=== PATIENT | male | born 1995 | race Hispanic/Latino ===

== ENCOUNTER 2017-08-09 19:55 | Emergency (ER) | payer SELFPAY ==
[2017-08-09] MEDS ORDERED: Lidocaine 2% PF 5 ML VIAL ONE (20:08)
[2017-08-09] MEDS ORDERED: cefTRIAXone\\ROCEPHIN 250 MG VIAL ONE (20:08)
[2017-08-09] MEDS ORDERED: Azithromycin 250 MG TAB ONE (20:08)
[2017-08-09] MEDS ORDERED: hydrOXYzine 25 MG TAB ONE (20:16)
== END 2017-08-09 20:52 | disposition home or self-care (01) ==
LOC: ERS 19:55
DX: A64 Unspecified sexually transmitted disease (principal); F41.9 Anxiety disorder, unspecified; F32.9 Major depressive disorder, single episode, unspecified; F17.210 Nicotine dependence, cigarettes, uncomplicated
CPT/HCPCS: 96372; J0696; J2001

== ENCOUNTER 2018-01-16 18:21 | Emergency (ER) | payer SELFPAY ==
[2018-01-16] MEDS ORDERED: Ketorolac Tromethamine 30 MG/ML VIAL ONE (19:07)
--- NOTE | 2018-01-16 19:20 | RAD ---
LEFT FOOT THREE VIEWS: 01/16/18 HISTORY: Left foot pain after dropping weight on the foot yesterday. COMPARISON: 10/03/14. FINDINGS: Joint spaces are preserved. Lisfranc alignment is maintained. No fracture. Mild soft tissue swelling. IMPRESSION: 1. No fracture. 2. Mild soft tissue swelling. POS: [facility]
[2018-01-16] MEDS ORDERED: Lorazepam 1 MG TAB ONE (19:50)
== END 2018-01-16 19:53 | disposition home or self-care (01) ==
LOC: ERS 18:21
DX: S90.32XA Contusion of left foot, initial encounter (principal); F41.9 Anxiety disorder, unspecified; F32.9 Major depressive disorder, single episode, unspecified; F17.210 Nicotine dependence, cigarettes, uncomplicated; Z79.899 Other long term (current) drug therapy; W20.8XXA Other cause of strike by thrown, projected or falling object, initial encounter
CPT/HCPCS: 96372; J1885

== ENCOUNTER 2018-01-21 14:33 | Emergency (ER) | payer SELFPAY ==
[2018-01-21] MEDS ORDERED: Ketorolac Tromethamine 60 MG/2 ML VIAL ONE (18:12)
--- NOTE | 2018-01-21 18:22 | RAD ---
LEFT FOOT THREE VIEWS: INDICATIONS: Left foot injury. COMPARISON: Prior exam dated 01/16/2018. IMPRESSION: No acute fracture or subluxation is evident. Lisfranc alignment is preserved. No radiopaque foreign body is demonstrated. Examination does not appear appreciably changed from the comparison study. POS: [facility]
== END 2018-01-21 18:17 | disposition home or self-care (01) ==
LOC: ERS 14:33
DX: S90.32XA Contusion of left foot, initial encounter (principal); F41.9 Anxiety disorder, unspecified; F32.9 Major depressive disorder, single episode, unspecified; F17.210 Nicotine dependence, cigarettes, uncomplicated; W20.8XXA Other cause of strike by thrown, projected or falling object, initial encounter
CPT/HCPCS: 96372; J1885

== ENCOUNTER 2018-01-23 14:05 | Emergency (ER) | payer SELFPAY ==
[2018-01-23 14:54] LABS: Bilirubin Negative (Negative); Blood, Urine Negative (Negative); Clarity CLEAR (Clear); Glucose, Urine (Dipstick) Negative (Negative); Leukocyte Negative (Negative); Nitrite Negative (Negative); Protein, Urine (Dipstick) Negative (Neg-Trace); Specific Gravity, Urine 1.029 (1.002-1.036); pH, Urine 5.5 (5.0-9.0)
[2018-01-23 15:00] LABS: #Basophils 0.1 thou/uL (0.0-0.2); #Eosinphils 0.1 thou/uL (0.0-0.7); #Lymphocytes 1.6 thou/uL (1.20-3.40); #Monocytes 0.5 thou/uL (0.11-0.59); #Neutrophils 5.3 thou/uL (1.40-6.50); %Basophils 0.7 % (0.0-1.0); %Monocytes 6.4 % (0.0-10.0); %Neutrophils 70.8 % (42.0-75.0); Hemoglobin 16.4 g/dL (14.0-18.0); Mean Corpuscular HGB CONC 32.8 g/dL (32.0-36.0); Mean Corpuscular Hemoglobin 30.3 pg (27.0-31.0); Mean Corpuscular Volume 92.2 fL (78.0-98.0); Mean Platelet Volume 10.3 fL (7.4-10.4); Platelet Count 180 thou/uL (130-400); RBC Distribution Width 12.9 % (11.5-14.5); Red Blood Cell (RBC) Count 5.43 mill/uL (4.70-6.10); White Blood Cell (WBC) Count 7.5 thou/uL (4.8-10.8)
[2018-01-23 15:08] LABS: Amphetamine Not Detected (NotDetected); Benzodiazepine Screen Detected (NotDetected); Cocaine Metabolite Screen Not Detected (NotDetected); Medtox Reader # READER 1; Methamphetamine Not Detected (NotDetected); Opiate Screen Not Detected (NotDetected); Phencyclidine (PCP) Not Detected (NotDetected); THC/Cannabinoid Screen Detected (NotDetected)
[2018-01-23 15:09] LABS: Barbiturates Screen Not Detected (NotDetected); Medtox Control Line Valid? VALID (VALID); Methadone Not Detected (NotDetected); Oxycodone Screen Not Detected (NotDetected); Tricyclic Screen Not Detected (NotDetected)
[2018-01-23 15:19] LABS: ALT (SGPT) 18 U/L (8-55); AST (SGOT) 35 U/L (5-34); Acetaminophen Less than 6.0 mcg/mL (10.0-30.0); Albumin 4.8 g/dL (3.5-5.0); Alcohol Less than 10 mg/dL (Less than 10); Alkaline Phosphatase 72 U/L (40-150); Anion Gap 13 mmol/L (10-20); BUN (Urea Nitrogen) 15 mg/dL (8.9-20.6); Bilirubin, Total 0.6 mg/dL (0.2-1.2); Calc. Creatinine Clearance 0 mL/min (70-130); Calcium 9.7 mg/dL (7.8-10.44); Carbon Dioxide 26 mmol/L (22-29); Chloride 107 mmol/L (98-107); Estimated GFR-MDRD Greater than 90; Globulin 3.2 g/dL (2.4-3.5); Glucose 94 mg/dL (70-105); Potassium 4.4 mmol/L (3.5-5.1); Salicylate Less than 8.0 mg/dL (15.0-30.0); Sodium 142 mmol/L (136-145)
[2018-01-23] MEDS ORDERED: Ondansetron ODT 8 MG TAB ONE (16:49)
[2018-01-23] MEDS ORDERED: Acetaminophen 500 MG TAB ONE (16:49)
== END 2018-01-23 16:55 | disposition home or self-care (01) ==
LOC: ERS 14:05
DX: G89.29 Other chronic pain (principal); M79.672 Pain in left foot; F41.9 Anxiety disorder, unspecified; F32.9 Major depressive disorder, single episode, unspecified; R11.10 Vomiting, unspecified; F17.210 Nicotine dependence, cigarettes, uncomplicated
CPT/HCPCS: 36415; 80053; 80306; 80307; 81003; 84443; 85025; 99283

== ENCOUNTER 2018-04-11 09:54 | Emergency (ER) | payer SELFPAY ==
[2018-04-11] MEDS ORDERED: Lidocaine 1% PF 5 ML VIAL ONE (10:46)
[2018-04-11] MEDS ORDERED: cefTRIAXone\\ROCEPHIN 250 MG VIAL ONE (10:46)
[2018-04-11] MEDS ORDERED: Azithromycin 250 MG TAB ONE (11:45)
[2018-04-14 20:34] LABS: Chlamydia by PCR DETECTED (NotDetected); GC by PCR DETECTED (NotDetected)
== END 2018-04-11 11:07 | disposition home or self-care (01) ==
LOC: ERS 09:54
DX: N34.2 Other urethritis (principal); F41.9 Anxiety disorder, unspecified; F32.9 Major depressive disorder, single episode, unspecified; F17.210 Nicotine dependence, cigarettes, uncomplicated
CPT/HCPCS: 87491; 87591; 96372; J0696; J2001

== ENCOUNTER 2018-05-24 08:10 | Emergency (ER) | payer SELFPAY ==
[2018-05-24 08:49] LABS: Bilirubin Negative (Negative); Blood, Urine Negative (Negative); Clarity CLOUDY (Clear); Glucose, Urine (Dipstick) Negative (Negative); Leukocyte Moderate (Negative); Nitrite Negative (Negative); Protein, Urine (Dipstick) Negative (Neg-Trace); Specific Gravity, Urine 1.016 (1.002-1.036)
[2018-05-24 08:50] LABS: Bacteria/HPF None Seen HPF (None Seen); Hyaline Casts/LPF 0-3 HYALINE CAST LPF (0-3 Hyaline); Pathc Cast-AUWi Flag 0.27 (0-2.49); RBC/HPF 0-3 HPF (0-3); Squamous Epithelial 0-3 HPF (0-3); WBC/HPF 21-50 HPF (0-3)
[2018-05-24] MEDS ORDERED: Ketorolac Tromethamine 60 MG/2 ML VIAL ONE (09:23)
[2018-05-24] MEDS ORDERED: Lidocaine 1% PF 5 ML VIAL ONE (09:24)
[2018-05-24] MEDS ORDERED: cefTRIAXone\\ROCEPHIN 250 MG VIAL ONE (09:24)
[2018-05-24] MEDS ORDERED: Azithromycin 250 MG TAB ONE (09:26)
[2018-05-26 20:25] LABS: Chlamydia by PCR Not Detected (NotDetected); GC by PCR DETECTED (NotDetected)
== END 2018-05-24 09:47 | disposition home or self-care (01) ==
LOC: ERS 08:10
DX: Z11.3 Encounter for screening for infections with a predominantly sexual mode of transmission (principal); J20.9 Acute bronchitis, unspecified; F41.9 Anxiety disorder, unspecified; F32.9 Major depressive disorder, single episode, unspecified; F17.210 Nicotine dependence, cigarettes, uncomplicated; Z71.6 Tobacco abuse counseling
CPT/HCPCS: 81003; 81015; 87491; 87591; 96372; 99406; J0696; J1885; J2001

== ENCOUNTER 2018-05-31 16:55 | Emergency (ER) | payer SELFPAY | END 2018-05-31 18:06 | disposition home or self-care (01) | LOC: ERS 16:55 | DX: J06.9 Acute upper respiratory infection, unspecified (principal); N50.9 Disorder of male genital organs, unspecified; F41.9 Anxiety disorder, unspecified; F32.9 Major depressive disorder, single episode, unspecified; F17.210 Nicotine dependence, cigarettes, uncomplicated | CPT/HCPCS: 99283 ==

== ENCOUNTER 2018-08-24 21:10 | Emergency (ER) | payer SELFPAY ==
[2018-08-24 21:47] LABS: Bilirubin Negative (Negative); Blood, Urine Negative (Negative); Clarity CLOUDY (Clear); Glucose, Urine (Dipstick) Negative (Negative); Leukocyte Small (Negative); Nitrite Negative (Negative); Protein, Urine (Dipstick) Negative (Neg-Trace); Specific Gravity, Urine 1.029 (1.002-1.036); Urobilinogen 0.2 mg/dL (0.2-1.0)
[2018-08-24 21:53] LABS: Bacteria/HPF None Seen HPF (None Seen); Pathc Cast-AUWi Flag 0.27 (0-2.49); RBC/HPF 0-3 HPF (0-3); Squamous Epithelial 0-3 HPF (0-3)
[2018-08-24 22:03] LABS: Hyaline Casts/LPF 0-3 HYALINE CAST LPF (0-3 Hyaline)
[2018-08-24] MEDS ORDERED: Lidocaine 1% PF 5 ML VIAL ONE (22:27)
[2018-08-24] MEDS ORDERED: Azithromycin 250 MG TAB ONE (22:27)
[2018-08-24] MEDS ORDERED: cefTRIAXone\\ROCEPHIN 250 MG VIAL ONE (22:27)
[2018-08-28 00:02] LABS: Chlam.trachomatis by PCR,Urine Not Detected (NotDetected)
== END 2018-08-24 22:45 | disposition home or self-care (01) ==
LOC: ERS 21:10
DX: N34.2 Other urethritis (principal); R11.0 Nausea; F32.9 Major depressive disorder, single episode, unspecified; F41.9 Anxiety disorder, unspecified; F17.210 Nicotine dependence, cigarettes, uncomplicated
CPT/HCPCS: 81003; 81015; 87086; 87491; 87591; 96372; J0696; J2001

== ENCOUNTER 2018-09-16 08:27 | Emergency (ER) | payer SELFPAY ==
[2018-09-16 09:06] LABS: #Eosinphils 0.1 thou/uL (0.0-0.7); #Lymphocytes 2.2 thou/uL (1.20-3.40); #Monocytes 0.5 thou/uL (0.11-0.59); #Neutrophils 3.6 thou/uL (1.40-6.50); %Basophils 0.6 % (0.0-1.0); %Eosinophils 1.1 % (0.0-10.0); %Lymphocytes 34.4 % (21.0-51.0); %Monocytes 7.8 % (0.0-10.0); %Neutrophils 56.2 % (42.0-75.0); Hemoglobin 15.3 g/dL (14.0-18.0); Mean Corpuscular HGB CONC 32.7 g/dL (32.0-36.0); Mean Corpuscular Hemoglobin 30.4 pg (27.0-31.0); Mean Platelet Volume 10.1 fL (7.4-10.4); Platelet Count 136 thou/uL (130-400); RBC Distribution Width 12.9 % (11.5-14.5); Red Blood Cell (RBC) Count 5.02 mill/uL (4.70-6.10); White Blood Cell (WBC) Count 6.4 thou/uL (4.8-10.8)
[2018-09-16 09:19] LABS: ALT (SGPT) 11 U/L (8-55); AST (SGOT) 11 U/L (5-34); Albumin 4.2 g/dL (3.5-5.0); Alkaline Phosphatase 56 U/L (40-150); Anion Gap 11 mmol/L (10-20); BUN (Urea Nitrogen) 14 mg/dL (8.9-20.6); Bilirubin, Total 0.3 mg/dL (0.2-1.2); Calc. Creatinine Clearance 0 mL/min (70-130); Calcium 8.8 mg/dL (7.8-10.44); Carbon Dioxide 25 mmol/L (22-29); Chloride 107 mmol/L (98-107); Estimated GFR-MDRD Greater than 90; Globulin 2.7 g/dL (2.4-3.5); Glucose 89 mg/dL (70-105); Protein, Total 6.9 g/dL (6.0-8.3); Sodium 139 mmol/L (136-145)
[2018-09-16] MEDS ORDERED: Ondansetron ODT 4 MG TAB ONE (09:39)
[2018-09-16] MEDS ORDERED: Acetaminophen 500 MG TAB ONE (10:32)
[2018-09-16] MEDS ORDERED: Ketorolac Tromethamine 60 MG/2 ML VIAL ONE (10:32)
== END 2018-09-16 10:55 | disposition home or self-care (01) ==
LOC: ERS 08:27
DX: K08.89 Other specified disorders of teeth and supporting structures (principal); R11.2 Nausea with vomiting, unspecified; M79.671 Pain in right foot; F41.9 Anxiety disorder, unspecified; F32.9 Major depressive disorder, single episode, unspecified; F17.210 Nicotine dependence, cigarettes, uncomplicated
CPT/HCPCS: 36415; 80053; 85025; 96372; J1885; Q0162

== ENCOUNTER 2019-04-09 12:51 | Emergency (ER) | payer SELFPAY ==
[2019-04-09] MEDS ORDERED: Ketorolac Tromethamine 30 MG/ML VIAL ONE (14:05)
[2019-04-09 14:14] LABS: #Basophils 0.1 thou/uL (0.0-0.2); #Eosinphils 0.1 thou/uL (0.0-0.7); #Lymphocytes 2.1 thou/uL (1.20-3.40); #Monocytes 0.3 thou/uL (0.11-0.59); #Neutrophils 2.9 thou/uL (1.40-6.50); %Basophils 1.1 % (0.0-1.0); %Lymphocytes 38.2 % (21.0-51.0); %Monocytes 6.1 % (0.0-10.0); %Neutrophils 52.6 % (42.0-75.0); Hemoglobin 16.2 g/dL (14.0-18.0); Mean Corpuscular HGB CONC 33.7 g/dL (32.0-36.0); Mean Corpuscular Hemoglobin 30.8 pg (27.0-31.0); Mean Corpuscular Volume 91.5 fL (78.0-98.0); Mean Platelet Volume 9.3 fL (7.4-10.4); Platelet Count 198 thou/uL (130-400); RBC Distribution Width 12.3 % (11.5-14.5); Red Blood Cell (RBC) Count 5.26 mill/uL (4.70-6.10); White Blood Cell (WBC) Count 5.6 thou/uL (4.8-10.8)
[2019-04-09 14:40] LABS: ALT (SGPT) 12 U/L (8-55); AST (SGOT) 15 U/L (5-34); Albumin 4.3 g/dL (3.5-5.0); Alkaline Phosphatase 59 U/L (40-110); Anion Gap 11 mmol/L (10-20); BUN (Urea Nitrogen) 15 mg/dL (8.9-20.6); Bilirubin, Total 0.5 mg/dL (0.2-1.2); Calc. Creatinine Clearance 0 mL/min (70-130); Carbon Dioxide 26 mmol/L (22-29); Chloride 106 mmol/L (98-107); Estimated GFR-MDRD 88; Globulin 2.7 g/dL (2.4-3.5); Glucose 85 mg/dL (70-105); Potassium 3.8 mmol/L (3.5-5.1); Sodium 139 mmol/L (136-145)
[2019-04-09] MEDS ORDERED: Iopamidol 370 76% 50 ML VIAL FS ONE (15:49)
[2019-04-09] MEDS ORDERED: Iopamidol-370 76% 500 ML 1 ML ONE (15:49)
[2019-04-09] MEDS ORDERED: Morphine 4 MG/ML VIAL ONE (16:32)
--- NOTE | 2019-04-09 17:22 | CT ---
CT OF THE ABDOMEN AND PELVIS WITH IV CONTRAST: 04/09/19 INDICATION: History of perirectal abscess. COMPARISON: None. FINDINGS: Lung bases are clear. The liver, spleen, pancreas, adrenal glands and kidneys reveal no acute abnormality. No free fluid or enlarged lymph nodes are evident. The appendix is not definitely seen; however, there is no secondary signs for appendicitis. The bladder is decompressed. The rectum and perirectal soft tissues appear within normal limits. The ischial anal fossa appears wi thin normal limits. No deep drainable fluid collection is grossly evident. No enlarged lymph nodes are evident within the pelvis. No acute osseous abnormality. IMPRESSION: No drainable fluid collection demonstrated in the perirectal region. POS: [facility]
== END 2019-04-09 18:34 | disposition home or self-care (01) ==
LOC: ERS 12:51
DX: K64.4 Residual hemorrhoidal skin tags (principal); F41.9 Anxiety disorder, unspecified; F32.9 Major depressive disorder, single episode, unspecified; F17.210 Nicotine dependence, cigarettes, uncomplicated
CPT/HCPCS: 74177; 80053; 85025; 96374; 96375; J1885; J2270; Q9967

== ENCOUNTER 2020-04-09 12:36 | Emergency (ER) | payer SELFPAY ==
[2020-04-09 13:19] LABS: #Basophils 0.1 thou/uL (0.0-0.2); #Eosinphils 0.2 thou/uL (0.0-0.7); #Lymphocytes 1.9 thou/uL (1.20-3.40); #Monocytes 0.6 thou/uL (0.11-0.59); #Neutrophils 4.3 thou/uL (1.40-6.50); %Basophils 0.9 % (0.0-1.0); %Eosinophils 2.3 % (0.0-10.0); %Lymphocytes 26.8 % (21.0-51.0); %Monocytes 8.4 % (0.0-10.0); %Neutrophils 61.6 % (42.0-75.0); Hemoglobin 14.5 g/dL (14.0-18.0); Mean Corpuscular HGB CONC 32.4 g/dL (32.0-36.0); Mean Corpuscular Hemoglobin 29.9 pg (27.0-31.0); Mean Corpuscular Volume 92.5 fL (78.0-98.0); Mean Platelet Volume 9.4 fL (7.4-10.4); Platelet Count 199 thou/uL (130-400); RBC Distribution Width 12.5 % (11.5-14.5); Red Blood Cell (RBC) Count 4.85 mill/uL (4.70-6.10)
[2020-04-09] MEDS ORDERED: Lorazepam 1 MG TAB ONE (13:39)
--- NOTE | 2020-04-09 13:45 | RAD ---
EXAM: Single view of the chest HISTORY: Chest pain and anxiety COMPARISON: 01/26/2016 FINDINGS: Single view of the chest shows a normal sized cardiomediastinal silhouette. There is no oliver dence of consolidation, mass, or pleural effusion. No acute osseous abnormality. IMPRESSION: No evidence of acute cardiopulmonary disease
[2020-04-09 13:48] LABS: ALT (SGPT) 23 U/L (8-55); AST (SGOT) 40 U/L (5-34); Albumin 4.4 g/dL (3.5-5.0); Alkaline Phosphatase 70 U/L (40-110); Anion Gap 12 mmol/L (10-20); BUN (Urea Nitrogen) 28 mg/dL (8.9-20.6); Bilirubin, Total 0.4 mg/dL (0.2-1.2); CK (CPK) 1793 U/L (30-200); Calc. Creatinine Clearance 0 mL/min (70-130); Calcium 9.1 mg/dL (7.8-10.44); Carbon Dioxide 27 mmol/L (22-29); Chloride 107 mmol/L (98-107); Globulin 3.3 g/dL (2.4-3.5); Glucose 103 mg/dL (70-105); Lipase 26 U/L (8-78); Potassium 4.4 mmol/L (3.5-5.1); Protein, Total 7.7 g/dL (6.0-8.3); Sodium 142 mmol/L (136-145)
[2020-04-09] MEDS ORDERED: Acetaminophen 500 MG TAB ONE (14:56)
[2020-04-09] MEDS ORDERED: Ibuprofen 200 MG TAB ONE (14:56)
--- NOTE | 2020-04-28 13:15 | EKG ---
Test Reason : CP Blood Pressure : / mmHG Vent. Rate : 093 BPM Atrial Rate : 093 BPM P-R Int : 142 ms QRS Dur : 082 ms QT Int : 328 ms P-R-T Axes : 054 044 037 degrees QTc Int : 407 ms Normal sinus rhythm with sinus arrhythmia Normal ECG Confirmed by USMAN LOWRY ([id number]), extractive metallurgist EZ JIANG ([id number] on 04/28/2020 1:14:39 PM Referred By: Confirmed By:USMAN Shipman
== END 2020-04-09 15:03 | disposition home or self-care (01) ==
LOC: ERS 12:36
DX: R07.9 Chest pain, unspecified (principal); I10 Essential (primary) hypertension; F17.210 Nicotine dependence, cigarettes, uncomplicated
CPT/HCPCS: 36415; 71045; 80053; 82550; 83690; 84484; 85025; 93005

== ENCOUNTER 2020-08-02 12:57 | Emergency (ER) | payer SELFPAY | END 2020-08-02 14:20 | disposition home or self-care (01) | LOC: ERS 12:57 | DX: K02.9 Dental caries, unspecified (principal); K08.89 Other specified disorders of teeth and supporting structures; F17.210 Nicotine dependence, cigarettes, uncomplicated; I10 Essential (primary) hypertension; Z79.899 Other long term (current) drug therapy | CPT/HCPCS: 99282 ==

== ENCOUNTER 2021-03-13 06:16 | Emergency (ER) | payer SELFPAY ==
[2021-03-13 07:02] LABS: Bilirubin Negative (Negative); Blood, Urine 1+ (Negative); Clarity Extra Turbid (Clear); Glucose, Urine (Dipstick) Normal (Negative); Ketone, Urine Trace mg/dL (Negative); Leukocyte 500 Leu/uL (Negative); Nitrite Negative (Negative); Protein, Urine (Dipstick) 100 mg/dL (Neg-Trace); Specific Gravity, Urine 1.034 (1.002-1.036); Urobilinogen Greater than 12 mg/dL (Less than 2)
[2021-03-13] MEDS ORDERED: cefTRIAXone\\ROCEPHIN 500 MG VIAL ONE (07:24)
[2021-03-13] MEDS ORDERED: Azithromycin 250 MG TAB ONE (07:24)
[2021-03-13 08:11] LABS: Bacteria/HPF 1+ HPF (None Seen)
[2021-03-13 08:13] LABS: WBC/HPF Greater than 50 HPF (0-3)
== END 2021-03-13 07:52 | disposition home or self-care (01) ==
LOC: ERS 06:16
DX: Z20.2 Contact with and (suspected) exposure to infections with a predominantly sexual mode of transmission (principal)
CPT/HCPCS: 80500; 81003; 81015; 87491; 87591; 96372; 99283; J0696

== ENCOUNTER 2024-01-28 14:05 | Emergency (ER) | payer SELFPAY ==
[2024-01-28 15:39] LABS: Bacteria/HPF None Seen HPF (None Seen); Bilirubin Negative (Negative); Blood, Urine Negative (Negative); CAUTI Indications for Culture Dysuria,urgency,freq; Clarity Clear (Clear); Glucose, Urine (Dipstick) Normal (Negative); Ketone, Urine Negative (Negative); Leukocyte Negative Leu/uL (Negative); Nitrite Negative (Negative); Protein, Urine (Dipstick) Negative (Neg-Trace); RBC/HPF None Seen HPF (0-3); Specific Gravity, Urine 1.022 (1.002-1.036); Squamous Epithelial 0-3 HPF (0-3); Urobilinogen Normal mg/dL (Less than 2); WBC/HPF 0-3 HPF (0-3)
[2024-01-28 15:41] LABS: Urine Culture Reflex No No
[2024-01-28] MEDS ORDERED: cefTRIAXone (ROCEPHIN) 500 MG VIAL ONE (16:36)
[2024-01-28] MEDS ORDERED: Lidocaine 1% MPF 2 ML VIAL ONE (16:38)
[2024-01-29 05:15] LABS: Chlam.trachomatis by PCR,Urine Not Detected (NotDetected); GC N.gonorrhoeae PCR,UrineVOID Not Detected (NotDetected)
== END 2024-01-28 16:45 | disposition home or self-care (01) ==
LOC: ERS 14:05
DX: Z20.2 Contact with and (suspected) exposure to infections with a predominantly sexual mode of transmission (principal)
CPT/HCPCS: 81001; 87491; 87591; 96372; 99283; J0696

== ENCOUNTER 2024-02-05 15:58 | Emergency (ER) | payer SELFPAY ==
[2024-02-05] MEDS ORDERED: HYDROcodone/Acetaminophen 5/325 mg Tablet ONE (16:55)
== END 2024-02-05 17:03 | disposition home or self-care (01) ==
LOC: ERS 15:58
DX: K08.89 Other specified disorders of teeth and supporting structures (principal)
CPT/HCPCS: 99282